=== PATIENT | female | born 1940 | race Hispanic/Latino ===

== ENCOUNTER 2023-07-01 05:12 | Inpatient (IN) | payer MEDICAID, SELFPAY ==
[2023-07-01 05:40] LABS: #Basophils 0.1 thou/uL (0.0-0.2); #Eosinphils 0.3 thou/uL (0.0-0.7); #Monocytes 0.6 thou/uL (0.11-0.59); #Neutrophils 4.7 thou/uL (1.40-6.50); %Eosinophils 3.9 % (0.0-10.0); %Lymphocytes 21.5 % (21.0-51.0); %Monocytes 8.2 % (0.0-10.0); %Neutrophils 64.8 % (42.0-75.0); Hematocrit 35.6 % (36.0-47.0); Hemoglobin 11.4 g/dL (12.0-16.0); Mean Corpuscular Hemoglobin 31.2 pg (27.0-31.0); Mean Corpuscular Volume 97.5 fl (78.0-98.0); Mean Platelet Volume 11.5 fL (7.4-10.4); Platelet Count 229 10x3/uL (130-400); RBC Distribution Width 13.8 % (11.5-14.5); Red Blood Cell (RBC) Count 3.65 mill/uL (4.20-5.40); White Blood Cell (WBC) Count 7.2 10x3/uL (4.8-10.8)
[2023-07-01] MEDS ORDERED: methylPREDNISolone Sod Succ/PF 125 MG/2 ML VIAL ONE (05:52)
[2023-07-01 06:06] LABS: ALT (SGPT) 17 U/L (8-55); AST (SGOT) 23 U/L (5-34); Albumin 3.7 g/dL (3.4-4.8); Alkaline Phosphatase 119 U/L (40-110); Anion Gap 12 mmol/L (10-20); BUN (Urea Nitrogen) 51 mg/dL (9.8-20.1); Bilirubin, Total 0.3 mg/dL (0.2-1.2); Calc. Creatinine Clearance 0 mL/min (70-130); Calcium 8.5 mg/dL (7.8-10.44); Carbon Dioxide 24 mmol/L (23-31); Chloride 105 mmol/L (98-107); Estimated GFR 26; Globulin 3.5 g/dL (2.4-3.5); Glucose 229 mg/dL (83-110); Lipase 149 U/L (8-78); Magnesium 2.2 mg/dL (1.6-2.6); Potassium 4.3 mmol/L (3.5-5.1); Protein, Total 7.2 g/dL (5.8-8.1); Sodium 137 mmol/L (136-145)
[2023-07-01 06:09] LABS: Troponin I Less than 0.010 ng/mL (< 0.028)
[2023-07-01 06:40] LABS: Analyzer IN Cardio ER; Base Excess (BEa) -1.9 mEq/L (-2.0 to +3.0); CO2 Tension 39.5 mmHg (35.0-45.0); Calcium, Ionized (arterial) 1.09 mmol/L (1.12-1.30); Carboxyhemoglobin (COHb) 0.3 gm% (0.0-3.0); Hematocrit-ABG 34 % (36.0-47.0); Hemoglobin (Hb) 11.7 g/dL (12.0-16.0); O2 Tension (PaO2), arterial 74.2 mmHg (> 60.0); Potassium - ABG Lab 4.47 mmol/L (3.70-5.30); pH, Arterial 7.383 (7.35-7.45)
[2023-07-01 06:42] LABS: ALV-art Gradient 161.625 mmHg (0-20); Puncture Site RRA
[2023-07-01] MEDS ORDERED: Furosemide 20 MG (2 mL) VIAL ONE ×2 (07:19→14:48)
[2023-07-01 07:34] LABS: T4 6.62 ug/dL (4.87-11.72)
[2023-07-01 07:43] LABS: SARS-CoV-2 NAA Rapid Test Not Detected (NotDetected)
[2023-07-01 09:16] LABS: Troponin I Less than 0.010 ng/mL (< 0.028)
[2023-07-01] MEDS ORDERED: Dextrose 50% Abboject 50 ML SYRINGE SLOW IVP PRN (09:50)
[2023-07-01] MEDS ORDERED: Dextrose 5% in Water 1,000 ML IV PRN (09:50)
[2023-07-01] MEDS ORDERED: Glucagon 1 MG/ML KIT IM PRN (09:50)
[2023-07-01 10:55] LABS: Iron 71 ug/dL (50-170); Iron Binding Capacity, Total 255 mcg/dL (265-497)
[2023-07-01 12:52] LABS: Troponin I Less than 0.010 ng/mL (< 0.028)
[2023-07-01] MEDS ORDERED: hydrALAZINE 25 MG TAB ONE (14:48)
[2023-07-01] MEDS: Furosemide 20 MG (2 mL) VIAL SLOW IVP SCH (14:53)
[2023-07-01] MEDS: hydrALAZINE 25 MG TAB PO SCH ×3 (14:54→22:34)
[2023-07-01 21:42] VITALS: BMI 29.0
[2023-07-01] MEDS: HumaLOG 300 UNITS/3 ML VIAL SC PRN (21:54)
[2023-07-01] MEDS: Carvedilol 6.25 MG TAB PO SCH (22:15)
[2023-07-02 07:48] LABS: #Monocytes 0.5 thou/uL (0.11-0.59); #Neutrophils 9.9 thou/uL (1.40-6.50); %Basophils 0.2 % (0.0-1.0); %Lymphocytes 6.7 % (21.0-51.0); %Monocytes 4.7 % (0.0-10.0); Hemoglobin 10.1 g/dL (12.0-16.0); Mean Corpuscular HGB CONC 32.6 g/dL (32.0-36.0); Mean Corpuscular Hemoglobin 31.1 pg (27.0-31.0); Mean Corpuscular Volume 95.4 fl (78.0-98.0); Mean Platelet Volume 11.9 fL (7.4-10.4); Platelet Count 219 10x3/uL (130-400); RBC Distribution Width 13.8 % (11.5-14.5); Red Blood Cell (RBC) Count 3.25 mill/uL (4.20-5.40); White Blood Cell (WBC) Count 11.2 10x3/uL (4.8-10.8)
[2023-07-02 07:56] LABS: Hemoglobin A1c 10.8 % (4.0-6.0)
[2023-07-02 08:04] LABS: ALT (SGPT) 13 U/L (8-55); AST (SGOT) 14 U/L (5-34); Albumin 3.4 g/dL (3.4-4.8); Alkaline Phosphatase 74 U/L (40-110); Anion Gap 11 mmol/L (10-20); BUN (Urea Nitrogen) 63 mg/dL (9.8-20.1); Bilirubin, Total 0.3 mg/dL (0.2-1.2); Calc. Creatinine Clearance 23 mL/min (70-130); Calcium 8.5 mg/dL (7.8-10.44); Carbon Dioxide 25 mmol/L (23-31); Chloride 104 mmol/L (98-107); Cholesterol 125 mg/dl (< 200 Desired); Estimated GFR 26; Globulin 3.2 g/dL (2.4-3.5); Glucose 292 mg/dL (83-110); HDL Cholesterol 42 mg/dL (>60 Neg Risk); LDL Cholesterol, Calculated 71 mg/dL; Magnesium 2.3 mg/dL (1.6-2.6); Potassium 4.3 mmol/L (3.5-5.1); Protein, Total 6.6 g/dL (5.8-8.1); Sodium 136 mmol/L (136-145); Triglycerides 60 mg/dL (Less than 150)
[2023-07-02] MEDS: Levothyroxine Sodium 75 MCG TAB PO SCH (08:58)
[2023-07-02] MEDS: Furosemide 20 MG (2 mL) VIAL SLOW IVP SCH ×2 (08:58→14:39)
[2023-07-02] MEDS ORDERED: Enoxaparin 30 MG (0.3 mL) SYRINGE SC SCH (09:00)
[2023-07-02] MEDS: hydrALAZINE 25 MG TAB PO SCH ×3 (09:38→21:25)
[2023-07-02] MEDS: Carvedilol 6.25 MG TAB PO SCH ×2 (09:38→21:23)
[2023-07-02] MEDS: HumaLOG 300 UNITS/3 ML VIAL SC PRN ×3 (11:24→21:26)
[2023-07-02] MEDS ORDERED: Amiodarone 150 MG in Dextrose 5% in Water 100 ML IVPB SCH (17:15)
[2023-07-02] MEDS: Amiodarone 450 MG, Admixture Fee 1 EACH in Dextrose 5% in Water 250 ML IVPB SCH (18:04)
[2023-07-02] MEDS: Apixaban 2.5 MG TAB PO SCH (21:25)
[2023-07-02] MEDS: Memantine 10 MG TAB PO SCH (21:25)
[2023-07-03] MEDS: Furosemide 20 MG (2 mL) VIAL SLOW IVP SCH ×2 (06:02→13:53)
[2023-07-03] MEDS: Levothyroxine Sodium 75 MCG TAB PO SCH (06:03)
[2023-07-03] MEDS: HumaLOG 300 UNITS/3 ML VIAL SC PRN ×4 (06:03→21:12)
[2023-07-03] MEDS: Amiodarone 450 MG, Admixture Fee 1 EACH in Dextrose 5% in Water 250 ML IVPB SCH (06:17)
[2023-07-03] MEDS: Carvedilol 6.25 MG TAB PO SCH ×2 (08:37→21:08)
[2023-07-03] MEDS: hydrALAZINE 25 MG TAB PO SCH ×3 (08:37→21:09)
[2023-07-03] MEDS: Apixaban 2.5 MG TAB PO SCH ×2 (08:37→21:09)
[2023-07-03] MEDS ORDERED: Amiodarone 200 MG TAB PO SCH (15:30)
[2023-07-03] MEDS ORDERED: Insulin Glargine 30 UNITS/0.3 ML VIAL SC SCH (21:00)
[2023-07-03] MEDS: Memantine 10 MG TAB PO SCH (21:08)
[2023-07-03] MEDS: Amiodarone 200 MG TAB PO SCH (21:08)
[2023-07-04] MEDS ORDERED: Lidocaine 4% Patch TD PRN (00:30)
[2023-07-04] MEDS ORDERED: Transdermal Patch Removal TOP PRN (00:31)
[2023-07-04] MEDS ORDERED: Acetaminophen 325 MG TAB PO PRN (00:39)
[2023-07-04 05:58] LABS: #Basophils 0.1 thou/uL (0.0-0.2); #Eosinphils 0.1 thou/uL (0.0-0.7); #Monocytes 0.8 thou/uL (0.11-0.59); #Neutrophils 5.5 thou/uL (1.40-6.50); %Basophils 0.7 % (0.0-1.0); %Eosinophils 1.5 % (0.0-10.0); %Lymphocytes 13.9 % (21.0-51.0); %Monocytes 11.1 % (0.0-10.0); %Neutrophils 72.1 % (42.0-75.0); Hematocrit 31.8 % (36.0-47.0); Hemoglobin 10.3 g/dL (12.0-16.0); Mean Corpuscular HGB CONC 32.4 g/dL (32.0-36.0); Mean Corpuscular Hemoglobin 30.1 pg (27.0-31.0); Mean Platelet Volume 12.9 fL (7.4-10.4); Platelet Count 180 10x3/uL (130-400); RBC Distribution Width 13.8 % (11.5-14.5); Red Blood Cell (RBC) Count 3.42 mill/uL (4.20-5.40); White Blood Cell (WBC) Count 7.6 10x3/uL (4.8-10.8)
[2023-07-04] MEDS: HumaLOG 300 UNITS/3 ML VIAL SC PRN (06:15)
[2023-07-04] MEDS: Levothyroxine Sodium 75 MCG TAB PO SCH (06:15)
[2023-07-04 06:47] LABS: Anion Gap 12 mmol/L (10-20); BUN (Urea Nitrogen) 56 mg/dL (9.8-20.1); Calc. Creatinine Clearance 27 mL/min (70-130); Calcium 8.4 mg/dL (7.8-10.44); Carbon Dioxide 27 mmol/L (23-31); Chloride 101 mmol/L (98-107); Estimated GFR 31; Glucose 245 mg/dL (83-110); Sodium 136 mmol/L (136-145)
[2023-07-04] MEDS ORDERED: HYDROcodone/Acetaminophen 5/325 mg Tablet PO PRN (08:22)
[2023-07-04] MEDS ORDERED: Furosemide 20 MG TAB PO SCH (09:00)
[2023-07-04] MEDS ORDERED: Insulin Glargine 30 UNITS/0.3 ML VIAL SC SCH (09:00)
[2023-07-04] MEDS: Amiodarone 200 MG TAB PO SCH (09:09)
[2023-07-04] MEDS: Carvedilol 6.25 MG TAB PO SCH (09:09)
[2023-07-04] MEDS: Apixaban 2.5 MG TAB PO SCH (09:09)
[2023-07-04] MEDS: hydrALAZINE 25 MG TAB PO SCH (09:09)
[2023-07-04 12:36] VITALS: BP 108/62; TEMP 98.3
[2023-07-05] MEDS ORDERED: FLU VACC QS2023(65UP)/MF59C/PF 60 MCG/0.5 ML SYRINGE IM ONE (09:00)
[2023-07-17] MEDS ORDERED: Amiodarone 200 MG TAB PO SCH (09:00)
[2023-07-31] MEDS ORDERED: Amiodarone 200 MG TAB PO SCH (09:00)
== END 2023-07-04 14:54 | disposition home or self-care (01) | DRG 291 ==
LOC: ERS 05:12 → ERHOLD 06:38 → 2NO 20:35
PROVIDERS: ADMIT Internal Medicine; ATTEND Hospitalist
PROC: 4A033R1 Measurement of Arterial Saturation, Peripheral, Percutaneous Approach (ICD-10-PCS; principal; 2023-07-01)
DX: I13.0 Hypertensive heart and chronic kidney disease with heart failure and stage 1 through stage 4 chronic kidney disease, or unspecified chronic kidney disease (principal); I50.31 Acute diastolic (congestive) heart failure; J96.01 Acute respiratory failure with hypoxia; J44.1 Chronic obstructive pulmonary disease with (acute) exacerbation; N17.9 Acute kidney failure, unspecified; N18.4 Chronic kidney disease, stage 4 (severe); E03.9 Hypothyroidism, unspecified; E11.22 Type 2 diabetes mellitus with diabetic chronic kidney disease; I48.0 Paroxysmal atrial fibrillation; I35.1 Nonrheumatic aortic (valve) insufficiency; E78.00 Pure hypercholesterolemia, unspecified; F03.90 Unspecified dementia, unspecified severity, without behavioral disturbance, psychotic disturbance, mood disturbance, and anxiety; Z96.649 Presence of unspecified artificial hip joint; Z98.890 Other specified postprocedural states; Z11.52 Encounter for screening for COVID-19
CPT/HCPCS: 36415; 36416; 36600; 71045; 80048; 80053; 80061; 82728; 82805; 83036; 83540; 83550; 83605; 83690; 83735; 83880; 84436; 84443; 84481; 84484; 85025; 93005; 93010; 93306; 93798; 96374; 96375; J0282; J1650; J1815; J1940; J2930; J7070